=== PATIENT | female | born 1995 | race Caucasian/White ===

== ENCOUNTER 2017-05-08 13:24 | Emergency (ER) | payer MEDICAID ==
[~2017-05-08] VITALS: Ht 160 cm; Wt 109.1 kg
[2017-05-08 13:48] VITALS: BP 122/74
== END 2017-05-08 16:50 | disposition home or self-care (01) ==
LOC: EMS 13:27
DX: H00.14 Chalazion left upper eyelid (principal); R03.0 Elevated blood-pressure reading, without diagnosis of hypertension; F17.210 Nicotine dependence, cigarettes, uncomplicated
CPT/HCPCS: 99283

== ENCOUNTER 2023-08-17 03:59 | Emergency (ER) | payer MEDICAID, OTHER ==
[~2023-08-17] VITALS: Ht 162.6 cm; Wt 93.2 kg
[2023-08-17 05:15] VITALS: BP 135/75; PULSE 101; RESP 16; TEMP 97.3
[2023-08-17] MEDS: IBUPROFEN 600 MG TABLET PO ONE (05:22)
[2023-08-17] MEDS: LORazepam 1 MG TABLET PO ONE (05:22)
== END 2023-08-17 06:04 | disposition home or self-care (01) ==
LOC: EMS 04:00
DX: H53.8 Other visual disturbances (principal); D64.9 Anemia, unspecified; F17.210 Nicotine dependence, cigarettes, uncomplicated; Z90.49 Acquired absence of other specified parts of digestive tract
CPT/HCPCS: 99283